=== PATIENT | female | born 1995 | race Native Hawaiian/Other Pacific Islander ===

== ENCOUNTER 2018-11-23 10:26 | Outpatient (CLI) | payer OTHER | END 2018-11-23 23:46 | disposition home or self-care (01) | LOC: RAD 10:26 | DX: M79.671 Pain in right foot (principal) ==

== ENCOUNTER 2019-02-02 20:59 | Emergency (ER) | payer OTHER ==
[~2019-02-02] VITALS: Ht 180.3 cm; Wt 131.5 kg
[2019-02-02 22:30] VITALS: BP 125/82; TEMP 98.6
== END 2019-02-02 22:35 | disposition home or self-care (01) ==
LOC: ED 20:59
DX: M54.5 Low back pain (principal)
CPT/HCPCS: 96372; 99282; J1885